=== PATIENT | male | born 2000 | race Caucasian/White ===

== ENCOUNTER 2020-10-10 09:37 | Emergency (ER) | payer OTHER ==
[~2020-10-10] VITALS: Ht 175.3 cm; Wt 62.3 kg
--- NOTE | 2020-10-10 11:16 | REP ---
INDICATION: sharp pain on R with deep breaths. COMPARISON: None TECHNIQUE: Upright PA and lateral chest. FINDINGS: There is a 6 mm nodular like density inferiorly in the right lung on the PA view, nonspecific, lung nodule versus superimposition artifact. There are no acute infiltrates or pleural effusions. There is no pneumothorax. The lung cool are otherwise clear. Cardiac size is normal. The anahi, mediastinum, and skeletal structures are unremarkable except for sternal pectus excavatum. IMPRESSION: No pneumothorax, infiltrate or pleural effusion. The lung cool are clear. Nodular density inferiorly in the right lung as described. Pectus excavatum. <Electronically signed by Abdulaziz Pa > 10/10/20 1110
[2020-10-10 11:57] LABS: HEMATOCRIT 44.1 % (42.0-52.0); HEMOGLOBIN 13.4 g/dl (13.5-17.5); MEAN CORPUSCULAR HEMOGLOBIN 20.2 pg (27.0-33.0); MEAN CORPUSCULAR HGB CONC 30.4 g/dl (32.0-36.5); MEAN CORPUSCULAR VOLUME 66.5 fl (80.0-96.0); PLATELET COUNT, AUTOMATED 286 10^3/uL (150-450); RED BLOOD COUNT 6.63 10^6/uL (4.30-6.10); WHITE BLOOD COUNT 8.4 10^3/uL (4.0-10.0)
[2020-10-10] MEDS ORDERED: ISOVUE-370 76% 100ML VIAL As Ordered ONE (14:00)
--- NOTE | 2020-10-10 14:36 | REP ---
INDICATION: lung nodule. COMPARISON: PA and lateral chest performed earlier today. TECHNIQUE: CT of the chest with IV contrast. FINDINGS: No lung nodule is identified, particularly on the right. Therefore, the finding on the plain film study earlier today is likely superimposition artifact. There are no infiltrates or pleural effusions. There is no mediastinal, hilar or axillary lymph node enlargement. There is a minimal volume of body fat. The thoracic aorta is unremarkable. Cardiac size normal. No pericardial effusion. Upper abdomen: The visualized hepatic parenchyma, pancreas and spleen are unremarkable. The adrenals are unremarkable. IMPRESSION: Essentially negative CT study of the chest. There is no lung nodule. Therefore, the finding on the PA and lateral chest earlier today is likely superimposition artifact. <Electronically signed by Abdulaziz Pa > 10/10/20 2237
[2020-10-10] MEDS ORDERED: IBUP-1022 PO (14:47)
[2020-10-10 14:55] VITALS: BP 115/76
== END 2020-10-10 14:58 | disposition home or self-care (01) ==
LOC: M ED 09:37
DX: R09.1 Pleurisy (principal)
CPT/HCPCS: 71046; 71260; 80047; 85027; 85379; 99284; Q9967